=== PATIENT | male | born 1960 | race Caucasian/White ===

== ENCOUNTER → 2019-10-06 | Outpatient (CLI) | payer MEDICARE ==
--- NOTE | 2019-10-07 15:29 | SLEEPCENT ---
DATE OF PROCEDURE: 10/06/2019 ORDERED BY: LAINE Veloz Nocturnal polysomnography was performed for the titration of pressure therapy in this patient with obstructive sleep apnea syndrome. For testing a [employer]Med Mirage FX nasal mask of standard size was used; 4 cm of water pressure were applied to the circuit and the lights were extinguished. 7 hours and 10 minutes of data were reviewed. There were 281 minutes of sleep identified. Sleep latency was normal at 12 minutes. Rapid eye movement (REM) latency was delayed at 215 minutes. Sleep architecture improved on optimal pressure therapy. There was one REM cycle late in the study. Overall sleep efficiency 66.6%. The patient's electrocardiogram showed what appeared to be a sinus rhythm with an average heart rate of 50 beats per minute. Electroencephalogram (EEG) showed normal waveforms for awake and sleep. Respiratory events were fully palliated with a CPAP pressure of 6, and remaining measures of sleep physiology were normal. IMPRESSION: Obstructive sleep apnea syndrome (G47.33). RECOMMENDATIONS: Nightly use of pressure therapy 6 cm of water.
== END ==
LOC: M SLEEP 20:00
PROVIDERS: ATTEND Physician Assistant
DX: G47.33 Obstructive sleep apnea (adult) (pediatric) (principal)

== ENCOUNTER → 2019-12-27 | Outpatient (CLI) | payer MEDICARE ==
--- NOTE | 2020-01-01 13:19 | SLEEPCENT ---
DATE OF STUDY: 12/27/2019 ORDERED BY: Zander Ocampo Nocturnal polysomnography was performed for the retitration of pressure therapy in this patient with known obstructive sleep apnea syndrome and apnea-hypopnea index of 41. For testing, the patient was fit with a [employer]Med Air Fit F20 full face mask of medium size and 6 cm of water pressure were applied to the circuit and the lights were extinguished. 7 hours and 56 minutes of data were reviewed. There were 428.5 minutes of sleep identified. Sleep latency was short at 4 minutes. REM latency was more prolonged at 401 minutes. Sleep architecture was poor with poor progression through the early part of the study. The patient did achieve REM sleep late in the test. Overall sleep efficiency was 91.3%. The electrocardiogram showed a sinus rhythm with an average heart rate of 55 beats per minute. Rate ranged 50-70. Electroencephalogram (EEG) showed coarsening in background, some fluoxetine related eye movements were seen. No other focal events were identified. Respiratory events were reasonably well palliated with C-PAP at a pressure of +8. Remaining measures of sleep physiology were normal. IMPRESSION: Obstructive sleep apnea syndrome (G47.33). RECOMMENDATION: Nightly use of pressure therapy at 8 cm of water.
== END ==
LOC: M SLEEP 20:00
PROVIDERS: ATTEND Physician Assistant
DX: G47.33 Obstructive sleep apnea (adult) (pediatric) (principal)

== ENCOUNTER → 2020-11-07 | Outpatient (CLI) | payer MEDICARE ==
--- NOTE | 2020-11-09 10:46 | SLEEPCENT ---
NOCTURNAL POLYSOMNOGRAPHY DATE: 11/07/2020 ORDERED BY: MARBELLA Veloz Nocturnal polysomnography was performed for retitration of pressure therapy in this patient with obstructive sleep apnea syndrome. For testing, the patient was placed on a [employer] AirTouch F20 full face mask of large size was used, 6 cm of water pressure were applied to the circuit, and the lights were extinguished. 7 hours and 18 minutes of data were reviewed. There were 176 minutes of sleep identified. Sleep latency was prolonged at 94.5 minutes. REM latency was not achieved. Sleep architecture showed poor progression. There were long periods of wake. Overall sleep efficiency was 40.7%. The electrocardiogram showed a sinus rhythm with an average heart rate of 54 beats per minute. EEG showed coarsening of background and some alpha intrusion was seen. No focal events were identified and there were normal waveforms for wake and sleep stages. Respiratory events were best palliated with CPAP at a pressure of 7. A trial of BiLevel therapy was attempted late in the study, but the patient tolerated it poorly. There was a prolonged period of wake between 1:30 and 4 a.m. for unclear reasons. IMPRESSION: Obstructive sleep apnea syndrome (G47.33). RECOMMENDATION: Nightly use of pressure therapy 7 cm of water.
== END ==
LOC: M SLEEP 20:00
PROVIDERS: ATTEND Physician Assistant
DX: G47.33 Obstructive sleep apnea (adult) (pediatric) (principal)

== ENCOUNTER 2023-05-14 12:42 | Emergency (ER) | payer MEDICARE ==
[~2023-05-14] VITALS: Ht 177.8 cm; Wt 158.6 kg
[2023-05-14 17:49] VITALS: BP 159/90; TEMP 97.9; O2SAT 98
== END 2023-05-14 17:50 | disposition home or self-care (01) ==
LOC: M ED 12:42
DX: M79.651 Pain in right thigh (principal); Z86.718 Personal history of other venous thrombosis and embolism; Z79.01 Long term (current) use of anticoagulants

== ENCOUNTER → 2025-06-01 | Outpatient (CLI) | payer MEDICARE | LOC: M SLEEP 20:00 | PROVIDERS: ATTEND Physician Assistant | DX: G47.33 Obstructive sleep apnea (adult) (pediatric) (principal) ==